=== PATIENT | female | born 1970 | race Caucasian/White ===

== ENCOUNTER 2024-08-30 07:50 | Emergency (ER) | payer SELFPAY ==
[2024-08-30] MEDS: Ondansetron 4 MG/2 ML SDV IVPUSH ONE ×2 (08:15→09:24)
[2024-08-30] MEDS: HYDROmorphone 1 MG/ML Syringe IVPUSH ONE (08:16)
[2024-08-30 08:20] LABS: BASOPHILS PERCENT AUTO 0.2 % (0.2-1.2); EOSINOPHILS ABSOLUTE AUTO 0.1 x10^3/uL (0.0-0.5); EOSINOPHILS PERCENT AUTO 2.2 % (0.0-4.0); HEMATOCRIT 43.4 % (33.0-47.0); LYMPHOCYTES ABSOLUTE AUTO 1.7 x10^3/uL (1.0-4.8); LYMPHOCYTES PERCENT AUTO 37.1 % (25.0-50.0); MEAN CORPUSCULAR HEMOGLOBIN 29.9 pg (26.0-32.0); MEAN CORPUSCULAR HGB CONC 34.6 g/dL (32.0-36.0); MEAN CORPUSCULAR VOLUME 86.5 fL (78.0-93.0); MONOCYTES ABSOLUTE AUTO 0.4 x10^3/uL (0.0-0.8); MONOCYTES PERCENT AUTO 8.4 % (2.0-11.0); NEUTROPHILS ABSOLUTE AUTO 2.4 x10^3/uL (1.8-7.7); NEUTROPHILS PERCENT AUTO 52.1 % (50.0-80.0); PLATELET COUNT,PLT 295 x10^3/uL (130-400); RED BLOOD CELL COUNT 5.02 x10^6/uL (4.00-5.50); WHITE BLOOD CELL COUNT,WBC 4.5 x10^3/uL (4.0-10.0)
[2024-08-30 08:29] LABS: APPEARANCE,URINE SLIGHTLY CLOUDY (CLEAR); BILIRUBIN,URINE NEGATIVE (NEGATIVE); COLOR,URINE YELLOW (YELLOW); GLUCOSE,URINE NEGATIVE (NEGATIVE); KETONES,URINE NEGATIVE (NEGATIVE); LEUKOCYTE ESTERASE,URINE NEGATIVE (NEGATIVE); NITRITE,URINE NEGATIVE (NEGATIVE); OCCULT BLOOD,URINE MODERATE (NEGATIVE); PROTEIN,URINE 30 mg/dL (NEGATIVE); UROBILINOGEN,URINE 0.2 EU/dL (0.2)
[2024-08-30 08:36] LABS: CALCIUM 8.7 mg/dL (8.5-10.1); CREATININE 0.8 mg/dL (0.55-1.02); EST CRCL DRUG DOSING (CG) 62.84 mL/min; POTASSIUM,K 3.9 mmol/L (3.5-5.1)
[2024-08-30 08:37] LABS: ANION GAP 11.9 mmol/L (5-15)
[2024-08-30 08:42] LABS: BACTERIA,URINE NOT SEEN /HPF (NOT SEEN); MUCUS,URINE NOT SEEN /LPF (NOT SEEN); SQUAMOUS EPITHELIAL CELLS,UR FEW /HPF (NOT SEEN); WBC,URINE 0-5 /HPF (NOT SEEN)
[2024-08-30] MEDS: HYDROmorphone 0.5 MG/0.5 ML Syringe IVPUSH ONE (09:24)
[2024-08-30] MEDS: Take Home: Ondansetron 4 MG Tab.DIS, 5 Tab Pack PO ONE (09:51)
[2024-08-30] MEDS: Take Home: Ketorolac 10 MG Tab, 4 Tab Pack PO ONE (09:51)
[2024-08-30] MEDS: Tamsulosin 0.4 MG Cap.ER PO ONE ×2 (09:51)
[2024-08-30] MEDS: Acetaminophen/HYDROcodone 325-5 MG Tab PO ONE (11:05)
[2024-08-30] MEDS: Ketorolac 30 MG/ML SDV IM ONE (11:46)
== END 2024-08-30 12:10 | disposition home or self-care (01) ==
LOC: VM.ED 07:50
DX: N13.2 Hydronephrosis with renal and ureteral calculous obstruction (principal)
CPT/HCPCS: 74176; 80048; 81001; 85025; 96372; 96374; 96375; 96376; 99284; 99284-25; A9270-GY; J1171; J1885; J2405; Q0162

== ENCOUNTER 2024-08-31 10:57 | Emergency (ER) | payer SELFPAY ==
[2024-08-31] MEDS ORDERED: Naloxone 0.4 MG/ML SDV IVPUSH PRN (11:15)
[2024-08-31] MEDS: Lactated Ringers 1,000 ML IV ONE (11:30)
[2024-08-31] MEDS: Ondansetron 4 MG/2 ML SDV IVPUSH ONE (11:31)
[2024-08-31] MEDS: HYDROmorphone 0.5 MG/0.5 ML Syringe IVPUSH ONE (11:32)
[2024-08-31] MEDS ORDERED: Ketorolac 30 MG/ML SDV IM ONE (13:05)
[2024-08-31] MEDS: Ketorolac 30 MG/ML SDV IVPUSH ONE (13:17)
[2024-08-31] MEDS: Take Home: Acetaminophen/HYDROcodone 325-5 MG, 5 Tab Pack PO ONE (14:15)
== END 2024-08-31 14:21 ==
LOC: VM.ED 10:57
DX: N20.0 Calculus of kidney (principal); I10 Essential (primary) hypertension
CPT/HCPCS: 96374; 96375; 99283; 99284; A9270; J1885; J2405; J7120